=== PATIENT | female | born 1975 | race Caucasian/White ===

== ENCOUNTER 2017-02-14 01:33 | Emergency (ER) | payer SELFPAY ==
[~2017-02-14] VITALS: Ht 175.3 cm; Wt 58.5 kg
[2017-02-14] MEDS ORDERED: TRAZODONE HCL50 MG PO (03:49)
[2017-02-14] MEDS ORDERED: ZOFRAN4 MG PO (03:49)
[2017-02-14] MEDS ORDERED: CLONIDINE HCL0.1 MG PO (03:49)
[2017-02-14 04:03] VITALS: BP 122/94
== END 2017-02-14 04:04 | disposition home or self-care (01) ==
LOC: EME 01:33
DX: F11.23 Opioid dependence with withdrawal (principal); R52 Pain, unspecified; R11.0 Nausea; F17.200 Nicotine dependence, unspecified, uncomplicated
CPT/HCPCS: 99281; 99283; J0572